=== PATIENT | male | born 1960 | race Caucasian/White ===

== ENCOUNTER 2017-01-20 22:10 | Emergency (ER) | payer BC ==
[2017-01-20 22:43] LABS: #Eosinphils 0.3 thou/uL (0.0-0.7); #Lymphocytes 1.8 thou/uL (1.20-3.40); #Monocytes 0.6 thou/uL (0.11-0.59); #Neutrophils 5.3 thou/uL (1.40-6.50); %Basophils 0.4 % (0.0-1.0); %Eosinophils 4.2 % (0.0-10.0); %Lymphocytes 22.6 % (21.0-51.0); %Monocytes 7.2 % (0.0-10.0); Mean Platelet Volume 7.5 fL (7.4-10.4); White Blood Cell (WBC) Count 8.1 thou/uL (4.8-10.8)
[2017-01-20 23:05] LABS: ALT (SGPT) 25 U/L (8-55); AST (SGOT) 19 U/L (5-34); Alkaline Phosphatase 52 U/L (40-150); Anion Gap 11 mmol/L (10-20); BUN (Urea Nitrogen) 12 mg/dL (8.4-25.7); Bilirubin, Total 1.7 mg/dL (0.2-1.2); Calc. Creatinine Clearance 0 mL/min (70-130); Calcium 10.1 mg/dL (7.8-10.44); Carbon Dioxide 26 mmol/L (22-29); Chloride 104 mmol/L (98-107); Estimated GFR-MDRD 71; Globulin 3.7 g/dL (2.4-3.5)
[2017-01-20 23:31] LABS: Bilirubin Negative (Negative); Blood, Urine Negative (Negative); Glucose, Urine (Dipstick) Negative (Negative); Ketone, Urine Negative (Negative); Nitrite Negative (Negative); Protein, Urine (Dipstick) Trace mg/dL (Neg-Trace); Urobilinogen 0.2 mg/dL (0.2-1.0)
[2017-01-20 23:33] LABS: Bacteria/HPF None Seen HPF (None Seen); Hyaline Casts/LPF 4-6 HYALINE CAST LPF (0-3 Hyaline); RBC/HPF 0-3 HPF (0-3); Squamous Epithelial 0-3 HPF (0-3)
[2017-01-21] MEDS ORDERED: Ketorolac Tromethamine 30 MG/ML VIAL ONE (00:49)
[2017-01-21] MEDS ORDERED: Ondansetron HCl/PF 4 MG/2 ML Vial ONE (00:55)
--- NOTE | 2017-01-21 08:13 | ULT ---
PRELIMINARY REPORT/[facility]/EMERGENCY AFTER HOURS PROCEDURE: EXAM: US Retroperitoneal Complete EXAM DATE/TIME: Exam ordered 01/20/2017 11:55 PM CLINICAL HISTORY: 56 years old, male; Pain; Abdominal pain; Flank; Left; Patient HX: Left flank pain x 1 week TECHNIQUE: Real-time ultrasound of the retroperitoneum (complete) with image documentation. COMPARISON: No relevant prior studies available. FINDINGS: Right kidney: The RIGHT kidney measures 11.3 x 5.5 x 5.5 cm. No stones. No hydronephrosis. Left kidney: The LEFT kidney measures 12.7 x 7.1 x 5.7 cm. There is mild LEFT hydronephrosis. Severa l LEFT renal pelvic calculi are identified for example measuring approximately 6 mm in the interpola r region. Bladder: Prevoid urinary bladder measures approximately 51 cc. The LEFT ureteral jet is not visualiz ed. The RIGHT ureteral jet is visualized. IMPRESSION: 1. Mild LEFT hydronephrosis. The LEFT ureteral jet is not visualized. Obstructing ureteral stone is possible. 2. Several nonobstructing LEFT renal pelvic calculi are present. Thank you for allowing us to participate in the care of your patient. Dictated and Authenticated by: Logan Costa MD 01/21/2017 12:44 AM Central Time ([place] \T\ [place]) FINAL REPORT EMERGENT AFTER HOURS RENAL ULTRASOUND: FINDINGS/IMPRESSION: I agree with the findings and impression given in the preliminary report per [facility] physician. There is left-sided hydronephrosis. The left ureteral jet could not be appreciated and a ureteral stone is a possibility. There are also several nonobstructing left renal calcifications. POS: JOHNIE
== END 2017-01-21 01:15 | disposition home or self-care (01) ==
LOC: ERS 22:10
DX: N23 Unspecified renal colic (principal); E11.9 Type 2 diabetes mellitus without complications; Z79.4 Long term (current) use of insulin; Z79.899 Other long term (current) drug therapy
CPT/HCPCS: 36415; 76770; 80053; 81003; 81015; 85025; 96361; 96374; 96375; J1885; J2405

== ENCOUNTER 2017-02-24 11:06 | Outpatient (CLI) | payer BC ==
--- NOTE | 2017-02-24 13:53 | CT ---
CT ABDOMEN AND PELVIS WITHOUT CONTRAST STONE PROTOCOL: Date: 02/24/17 HISTORY: Kidney stones. COMPARISON: Stone protocol CT dated 05/20/16. FINDINGS: There is a punctate calculus within the interpolar right kidney. There is a 2.0 mm calculus in the s uperior pole of left kidney. There is mild asymmetric stranding within the left renal pelvis. No hyd ronephrosis. No calculus is seen within either ureter nor the urinary bladder. The previously described obstructive calculus distal right ureter is no longer present. Lung bases are clear. No pericardial effusion. Noncontrast evaluation of the liver, spleen, adrenal glands, and pancreas are all unremarkable. The aortoiliac contour is unremarkable. Mild diverticular disease sigmoid colon without active inflammation. No free intraperitoneal gas or fluid. Mild scoliosis of the thoracolumbar junction. There are large osteophytes of the right femoral head/ neck junction. There appears to be a small body within the right hip joint space. IMPRESSION: 1. Interval resolution of the previously described right distal ureteral calculus. 2. No hydroureteronephrosis. 3. 2.0 mm calculus superior pole left kidney and punctate calculus of the interpolar right kidney. 4. No new calculi from the comparison examination are appreciated. 5. Moderate splenomegaly. POS: C
== END 2017-02-24 11:07 | disposition home or self-care (01) ==
LOC: CT 11:06
PROVIDERS: ATTEND Urology
DX: Z12.5 Encounter for screening for malignant neoplasm of prostate (principal); N20.1 Calculus of ureter; N20.0 Calculus of kidney; Z87.442 Personal history of urinary calculi; R16.1 Splenomegaly, not elsewhere classified
CPT/HCPCS: 36415; 74176; 80048; 81003; 83970; 84550; 87086; G0103

== ENCOUNTER 2017-08-06 12:47 | Outpatient (CLI) | payer BC ==
--- NOTE | 2017-08-06 14:29 | MRI ---
LUMBAR SPINE MRI WITHOUT IV CONTRAST: History: 57-year-old male with history of low back pain with pain radiating down the right leg for three weeks without injury. FINDINGS: Multiplanar, multisequence MRI examination of the lumbar spine is performed. There is a focal right p aracentral disc osteophyte at T12-L1 with some moderate associated canal stenosis. L1-2: There is a prominent right paracentral disc osteophyte with right sided canal stenosis and righ t lateral recess stenosis with moderate right foraminal stenosis. L2-3: Unremarkable. L3-4: Diffuse disc bulging resulting in moderate central canal and lateral recess stenosis and bilate ral foraminal stenosis, worse on the left side. There is some fatty change of the filum terminale. L4-5: There is mild central canal and moderate right lateral recess stenosis and mild to moderate june ateral foraminal stenosis. L5-S1: Small annular fissure centrally, but no significant canal or foraminal stenosis. No abnormal m arrow signal. IMPRESSION: 1. Variable severity multilevel canal, lateral recess, and foraminal stenosis including T12-L1, L1-2, and L3-4 most severely involved. POS: OFF
== END 2017-08-06 12:48 | disposition home or self-care (01) ==
LOC: TBSIIMAG 12:47
PROVIDERS: ATTEND Nurse Practitioner Family
DX: M54.16 Radiculopathy, lumbar region (principal); M48.061 Spinal stenosis, lumbar region without neurogenic claudication; M48.05 Spinal stenosis, thoracolumbar region; M99.83 Other biomechanical lesions of lumbar region; M99.82 Other biomechanical lesions of thoracic region
CPT/HCPCS: 72148

== ENCOUNTER 2019-10-12 07:34 | Outpatient (CLI) | payer BC ==
--- NOTE | 2019-10-12 09:09 | CT ---
CT ABDOMEN AND PELVIS WITH ORAL AND IV CONTRAST: Date: 10/12/2019 HISTORY: Bloody stool and constipation. Hematuria. Nonalcoholic fatty liver disease. Hematochezia. FINDINGS: Mild patchy density in the right middle lobe is again seen, as on the exam of 02/24/2017. The liver d emonstrates decreased attenuation compared to the spleen consistent with fatty infiltration. The saúl ent is post cholecystectomy. The spleen, pancreas, and adrenal glands are normal. There is a tiny, no nobstructing right renal calculus. There is left-sided hydroureteronephrosis due to calcific densitie s in the left distal ureter at S2-S3 level measuring up to 7.0 mm. There is a relative delay in the p arenchymal enhancement of the left renal cortex compared to the right. No free air, free fluid, or lymphadenopathy seen in the abdomen or pelvis. The small bowel loops are not abnormally dilated. The patient is post appendectomy. There are vascular calcifications without e vidence of aneurysmal dilatation of the abdominal aorta. Multilevel degenerative changes are present. IMPRESSION: 1. Left obstructive uropathy due to a 7.0 mm left distal ureteral calculus. 2. Tiny, nonobstructing right renal calculi. 3. Fatty liver. POS: JOHNIE
[2019-10-12] MEDS ORDERED: Iopamidol-370 76% 500 ML 1 ML ONE (16:25)
== END 2019-10-12 07:35 | disposition home or self-care (01) ==
LOC: BICCT 07:34
PROVIDERS: ATTEND Internal Medicine Gastroenterology
DX: K59.00 Constipation, unspecified (principal); K92.1 Melena; R31.9 Hematuria, unspecified; K76.0 Fatty (change of) liver, not elsewhere classified; N20.2 Calculus of kidney with calculus of ureter; N13.9 Obstructive and reflux uropathy, unspecified
CPT/HCPCS: 74177; Q9967

== ENCOUNTER 2019-10-21 05:07 | Outpatient (CLI) | payer BC, OTHER ==
[2019-10-21 13:54] LABS: Prothrombin Time 12.8 sec (12.0-14.7)
[2019-10-21 13:55] LABS: Bacteria/HPF None Seen HPF (None Seen); Bilirubin Negative (Negative); Blood, Urine 2+ (Negative); Clarity Clear (Clear); Glucose, Urine (Dipstick) Greater than 1000 mg/dL (Negative); Ketone, Urine Negative (Negative); Leukocyte Negative Leu/uL (Negative); Mucous/LPF 1+ LPF (<2+); Nitrite Negative (Negative); Protein, Urine (Dipstick) Negative (Neg-Trace); RBC/HPF 21-50 HPF (0-3); Specific Gravity, Urine 1.029 (1.002-1.036); Squamous Epithelial 0-3 HPF (0-3); Urobilinogen Normal mg/dL (Less than 2); pH, Urine 5.5 (5.0-9.0)
[2019-10-21 13:57] LABS: #Eosinphils 0.3 thou/uL (0.0-0.7); #Lymphocytes 1.4 thou/uL (1.20-3.40); #Monocytes 0.4 thou/uL (0.11-0.59); #Neutrophils 4.6 thou/uL (1.40-6.50); %Basophils 0.5 % (0.0-1.0); %Eosinophils 3.9 % (0.0-10.0); %Lymphocytes 21.4 % (21.0-51.0); %Monocytes 6.1 % (0.0-10.0); %Neutrophils 68.2 % (42.0-75.0); Hemoglobin 15.2 g/dL (14.0-18.0); Mean Corpuscular HGB CONC 34.1 g/dL (32.0-36.0); Mean Corpuscular Hemoglobin 28.4 pg (27.0-31.0); Mean Corpuscular Volume 83.2 fL (78.0-98.0); Mean Platelet Volume 8.5 fL (7.4-10.4); Platelet Count 199 thou/uL (130-400); RBC Distribution Width 14.4 % (11.5-14.5); Red Blood Cell (RBC) Count 5.37 mill/uL (4.70-6.10); White Blood Cell (WBC) Count 6.7 thou/uL (4.8-10.8)
[2019-10-21 14:11] LABS: Anion Gap 13 mmol/L (10-20); BUN (Urea Nitrogen) 12 mg/dL (8.4-25.7); Calc. Creatinine Clearance 0 mL/min (70-130); Carbon Dioxide 27 mmol/L (22-29); Chloride 101 mmol/L (98-107); Estimated GFR-MDRD 63; Glucose 359 mg/dL (70-105); Potassium 4.7 mmol/L (3.5-5.1); Sodium 136 mmol/L (136-145); Uric Acid 5.2 mg/dL (3.5-7.2)
[2019-10-22 12:38] LABS: SARS-CoV-2 MS2 Positive; SARS-CoV-2 N Gene Negative; SARS-CoV-2 S Gene Negative; SARS-CoV-2 orf1ab Negative
== END 2019-10-21 05:08 | disposition home or self-care (01) ==
LOC: LABBT 05:07
PROVIDERS: ATTEND Urology
DX: Z01.818 Encounter for other preprocedural examination (principal); Z11.59 Encounter for screening for other viral diseases; Z12.5 Encounter for screening for malignant neoplasm of prostate; N40.0 Benign prostatic hyperplasia without lower urinary tract symptoms; E79.0 Hyperuricemia without signs of inflammatory arthritis and tophaceous disease; R31.29 Other microscopic hematuria; R39.11 Hesitancy of micturition; Z87.442 Personal history of urinary calculi
CPT/HCPCS: 80048; 81001; 84550; 85025; 85610; 87086; 87635; 93005; 93010; G0103; U0003

== ENCOUNTER 2019-10-21 12:24 | Outpatient (CLI) | payer BC, OTHER ==
--- NOTE | 2019-10-21 18:34 | CT ---
CT ABDOMEN AND PELVIS WITHOUT CONTRAST: 10/21/19 HISTORY: Ureteral calculus. Pelvic discomfort. COMPARISON: 10/12/19. There is continued left hydroureteronephrosis due to calculi in the left distal ureter measuring up t o 7 mm. Tiny calculi in the right kidney are again seen. No right sided hydroureteronephrosis noted. No calculi noted in the right ureter or the urinary bladder. Remainder of the exam is otherwise stabl e as well. IMPRESSION: 1. Stable exam since 10/12/19. 2. Left obstructive uropathy due to distal ureteral calculi measuring up to 7 mm. 3. Tiny nonobstructing right renal calculi. 4. Fatty liver. 5. Colonic diverticulosis without diverticulitis. POS: [facility]
== END 2019-10-21 12:25 | disposition home or self-care (01) ==
LOC: BICCT 12:24
PROVIDERS: ATTEND Urology
DX: N20.2 Calculus of kidney with calculus of ureter (principal); K57.30 Diverticulosis of large intestine without perforation or abscess without bleeding; K76.0 Fatty (change of) liver, not elsewhere classified; N13.9 Obstructive and reflux uropathy, unspecified
CPT/HCPCS: 74176; 80048; 81001; 84550; 85025; 85610; 87086; 87635; 93005; G0103; U0003

== ENCOUNTER 2019-10-26 06:13 | Day surgery (SDC) | payer BC ==
[2019-10-24 12:13] VITALS: BMI 35.9
[2019-10-26] MEDS ORDERED: Fentanyl 100 MCG/2 ML VIAL ONE (06:34)
[2019-10-26] MEDS ORDERED: Iothalamate Meglumine 60% 50 ML VIAL FS ONE (07:10)
[2019-10-26] MEDS ORDERED: Levofloxacin 500 mg/D5W 100 ml Premix Bag ONE (07:13)
[2019-10-26 07:20] LABS: PTT 32.3 sec (22.9-36.1); Prothrombin Time 13.6 sec (12.0-14.7)
--- NOTE | 2019-10-26 08:01 | RAD ---
EXAM: Single view of the abdomen HISTORY: Left kidney stone COMPARISON: CT abdomen/pelvis 10/21/2019 FINDINGS: Single view of the abdomen shows a nonspecific, nonobstructive bowel gas pattern. No suspi cious calcifications are seen. Scoliosis and degenerative changes are seen in the spine. Cholecystectomy clips are seen. IMPRESSION: No evidence of bowel obstruction or urinary collecting system calcification
--- NOTE | 2019-10-26 09:25 | OP ---
DATE OF PROCEDURE: 10/26/2019 PRIMARY CARE PHYSICIAN: Zhang Rosas MD PREOPERATIVE DIAGNOSES: 1. A 59-year-old male with recurrent urolithiasis, non-progression of left 7 mm x 1.4 cm mid ureteral calculi. 2. Nonobstructing right mid to lower pole renal calculi x2 measuring 2 to 3 mm. POSTOPERATIVE DIAGNOSES: 1. A 59-year-old male with recurrent urolithiasis, non-progression of left 7 mm x 1.4 cm mid ureteral calculi. 2. Nonobstructing right mid to lower pole renal calculi x2 measuring 2 to 3 mm. PROCEDURES PERFORMED: Cystoscopy, left retrograde pyelogram, 6 x 28 double-J ureteral stent, balloon dilatation of the distal ureter, rigid ureteroscopy, laser lithotripsy, basket extraction of stone fragments, 6 x 28 double-J ureteral stent placement with distal tail in situ, taped to the patient's penis. ANESTHESIA: General. COMPLICATIONS: None apparent. SPECIMENS: Stone for chemical analysis. INTRAOPERATIVE FINDINGS: 1. Coapting lateral lobes of the prostate with no significant outlet obstruction. 2. Bladder unremarkable. 3. Left mid ureteral calculi at the level of S2-S3 ureter with non-progression with hydronephrosis with bullous edema of the ureteral mucosa consistent with obstruction. INDICATIONS FOR PROCEDURE AND HISTORY: Mr. Trevino is a 59-year-old morbidly obese male with recurrent urolithiasis. He presented with CT demonstrating left hydronephrosis in the mid ureteral calculi at the level of S2-S3. Due to non-progression of the stone, he presents today for ureteroscopy and laser lithotripsy. Risks and complications of procedure have been discussed with the patient including, but not limited to, bleeding, pain, infection, injury to adjacent organs, urosepsis, stricture formation, possible secondary procedure. All questions were answered to his satisfaction and he desired to proceed without reservation. DESCRIPTION OF PROCEDURE: After an informed consent was signed, the patient was taken to the operating room, placed in a dorsal lithotomy position with the genital area prepped and draped in the usual surgical sterile fashion. A 21-Hungarian cystoscope was utilized for cystoscopy, which demonstrated normal anterior and posterior urethra. Prostatic urethra was staged demonstrating bilobar coapting lateral lobes with no significant outlet obstruction of concern. Bladder was entered, which demonstrated no evidence of trabeculation, bladder stone concern. UOs identified in normal orthotopic position. A 5-Hungarian open-ended catheter was utilized to intubate the left UO and a retrograde pyelogram demonstrated a radiolucent stone seen as a filling defect in the mid ureter consistent with the CT scan. Proximal hydroureteronephrosis was noted. A 0.035 Sensor wire was placed into the left upper pole without difficulty. Subsequently, we used a [employer] 4-cm 12-Hungarian balloon dilator to dilate the intramural ureter. Subsequently, we passed the rigid ureteroscope with the wire in situ as a safety, engaging the stone. Using a 273 micron laser fiber and 0.9 joules, we laser lithotripsied the stone into multiple fragments. The stone was large consistent with the CT scan and its craniocaudal dimension measuring 1.4 cm. It was broken into multiple tiny pieces and using a Zero Tip Nitinol basket, we basket extracted all those that were amendable to be basket extracted. They did break into multiple fragments, which retrieved from the proximal ureter as well. Surveillance ureteroscopy to the proximal ureter demonstrated no further stone nidus of concern except minute dust-like stone debris. We collected the stone from an [employer] evacuator from the bladder as there were numerous in the bladder and sent for chemical analysis. A 6 x 28 double-J ureteral stent was passed without difficulty and the wire completely removed. Then, Lucas was then taped to the patient's penis with Tegaderm. He tolerated the procedure well. He was discharged with tramadol #30, Azo p.r.n., ciprofloxacin for 7 days, he is advised to continue his Flomax, which was provided for medical expulsion therapy on initial visit while he has a stent in. He will return to clinic on November 02 at stent pull on Lucas. We will proceed with stone metabolic panel in the following subsequent months after convalescence. Job ID: [id number]
[2019-10-26] MEDS ORDERED: Tamsulosin HCl 0.4 MG CAP ONE (09:51)
--- NOTE | 2019-10-26 10:49 | RAD ---
EXAM: Retrograde IVP HISTORY: Kidney stones COMPARISON: CT abdomen 10/21/2019 FINDINGS/IMPRESSION: Limited intraoperative fluoroscopic views of the retrograde IVP were submitted f or interpretation. There is mild left hydronephrosis. There is an 8 mm filling defect in the distal ureter. Eventually, a double-J stent is seen within the left ureter in good position.
[2019-10-26] MEDS ORDERED: PROPOFOL 200 MG/20 ML VIAL ONE (11:24)
[2019-10-26] MEDS ORDERED: Rocuronium Bromide 10 MG/ML (10ML VIAL) ONE (11:24)
[2019-10-26] MEDS ORDERED: Glycopyrrolate 0.2 MG/ML 5 ML SYRINGE ONE (11:24)
[2019-10-26] MEDS ORDERED: Lidocaine 1% PF 5 ML VIAL ONE (11:24)
[2019-10-26] MEDS ORDERED: Phenazopyridine HCl 97.5 MG TABLET ONE (11:40)
== END 2019-10-26 12:05 | disposition home or self-care (01) ==
LOC: SDC 06:13
PROVIDERS: ATTEND Urology
PROC: 0T778DZ Dilation of Left Ureter with Intraluminal Device, Via Natural or Artificial Opening Endoscopic (ICD-10-PCS; principal; 2019-10-26)
PROC: 0TC78ZZ Extirpation of Matter from Left Ureter, Via Natural or Artificial Opening Endoscopic (ICD-10-PCS; principal; 2019-10-26)
PROC: 0TC38ZZ Extirpation of Matter from Right Kidney Pelvis, Via Natural or Artificial Opening Endoscopic (ICD-10-PCS; principal; 2019-10-26)
DX: N13.2 Hydronephrosis with renal and ureteral calculous obstruction (principal); N40.1 Benign prostatic hyperplasia with lower urinary tract symptoms; R39.11 Hesitancy of micturition; E79.0 Hyperuricemia without signs of inflammatory arthritis and tophaceous disease; R31.0 Gross hematuria; Z79.899 Other long term (current) drug therapy
CPT/HCPCS: 36416; 74018; 74420; 82365; 85610; 85730; 88300; J1956; J2704; J3010

== ENCOUNTER 2021-11-26 07:58 | Outpatient (CLI) | payer BC | END 2021-11-26 07:59 | disposition home or self-care (01) | LOC: CT 07:58 | PROVIDERS: ATTEND Urology | DX: N20.0 Calculus of kidney (principal); K76.0 Fatty (change of) liver, not elsewhere classified; K42.9 Umbilical hernia without obstruction or gangrene | CPT/HCPCS: 74176 ==